=== PATIENT | female | born 1995 | race African-American/Black ===

== ENCOUNTER 2020-06-04 19:21 | Emergency (ER) | payer MEDICAID ==
[~2020-06-04] VITALS: Ht 162.6 cm; Wt 73.0 kg
[2020-06-04] MEDS ORDERED: ACETAMINOPHEN 325MG TABLET PO ONE (20:00)
[2020-06-04] MEDS ORDERED: ONDANSETRON HCL 4MG/2ML INJ IV STA (20:20)
[2020-06-04] MEDS ORDERED: SODIUM CHLORIDE 0.9% 1,000 ML IV ONE (20:20)
[2020-06-04 20:56] LABS: CLARITY URINE CLEAR (CLEAR); COLOR URINE YELLOW (YELLOW); KETONES URINE TRACE (NEGATIVE); LEUKOCYTE ESTERASE URINE NEGATIVE (NEGATIVE); NITRITE URINE NEGATIVE (NEGATIVE); OCCULT BLOOD URINE TRACE (NEGATIVE); PROTEIN URINE TRACE (NEGATIVE); SPECIFIC GRAVITY URINE 1.027 (1.005-1.030)
[2020-06-04 20:58] LABS: BASOPHILS % 0.4 % (0.0-2.0); EOSINOPHILS % 0.2 % (0.0-5.0); HEMATOCRIT. 40.4 % (36.0-48.0); HEMOGLOBIN. 13.5 g/dL (12.0-16.0); LYMPHOCYTES % 22.6 % (20.0-50.0); MEAN CORPUSCULAR HEMOGLOBIN 28.1 pg (28.0-32.0); MEAN PLATELET VOLUME 8.9 fl (7.4-10.4); MONOCYTES % 9.3 % (2.0-8.0); NEUTROPHILS % 67.5 % (40.0-76.0); PLATELET 199 x1000/uL (130-400); RED BLOOD CELL COUNT 4.81 mill/uL (4.2-5.4); RED CELL DISTRIBUTION WIDTH 13.8 % (11.6-14.6)
[2020-06-04 21:07] LABS: CHLORIDE 102 mEq/L (98-107)
[2020-06-04 22:06] VITALS: BP 131/74
== END 2020-06-04 22:10 | disposition home or self-care (01) ==
LOC: ER 19:21
DX: U07.1 COVID-19 (principal); B34.9 Viral infection, unspecified; E86.0 Dehydration
CPT/HCPCS: 36415; 80053; 81003; 81025; 85025; 96361; 96374; 99283; C9803; J2405; J7030; U0003

== ENCOUNTER 2020-08-28 18:47 | Emergency (ER) | payer MEDICAID ==
[~2020-08-28] VITALS: Ht 162.6 cm; Wt 90.7 kg
[2020-08-28 21:15] VITALS: BP 119/84
== END 2020-08-28 21:51 | disposition home or self-care (01) ==
LOC: ER 18:47
DX: B34.9 Viral infection, unspecified (principal); R05 Cough; Z20.828 Contact with and (suspected) exposure to other viral communicable diseases
CPT/HCPCS: 71045; 87635; 99284; C9803

== ENCOUNTER 2020-10-23 12:09 | Emergency (ER) | payer MEDICAID ==
[~2020-10-23] VITALS: Ht 162.6 cm; Wt 90.0 kg
[2020-10-23 12:12] VITALS: BP 129/80
[2020-10-23] MEDS ORDERED: ACETAMINOPHEN 325MG TABLET PO ONE (12:45)
== END 2020-10-23 13:25 | disposition home or self-care (01) ==
LOC: ER 12:09
DX: S90.122A Contusion of left lesser toe(s) without damage to nail, initial encounter (principal); W22.8XXA Striking against or struck by other objects, initial encounter; Y93.89 Activity, other specified; Y92.59 Other trade areas as the place of occurrence of the external cause
CPT/HCPCS: 73630; 99283

== ENCOUNTER 2021-12-17 18:10 | Emergency (ER) | payer MEDICAID ==
[~2021-12-17] VITALS: Ht 162.6 cm; Wt 103.0 kg
[2021-12-17 21:00] VITALS: BP 120/81
== END 2021-12-17 21:43 | disposition home or self-care (01) ==
LOC: ER 18:10
DX: U07.1 COVID-19 (principal)
CPT/HCPCS: 87426; 99283

== ENCOUNTER 2022-01-05 11:17 | Emergency (ER) | payer MEDICAID ==
[~2022-01-05] VITALS: Ht 162.6 cm; Wt 101.0 kg
[2022-01-05] MEDS ORDERED: ONDANSETRON HCL 4MG/2ML INJ IV STA (11:29)
[2022-01-05] MEDS ORDERED: SODIUM CHLORIDE 0.9% 1,000 ML IV ONE (11:30)
[2022-01-05 12:10] LABS: BASOPHILS % 0.5 % (0.0-2.0); EOSINOPHILS % 1.8 % (0.0-5.0); HEMATOCRIT. 39.1 % (36.0-48.0); HEMOGLOBIN. 12.9 g/dL (12.0-16.0); LYMPHOCYTES % 22.4 % (20.0-50.0); MEAN CORPUSCULAR HEMOGLOBIN 27.2 pg (28.0-32.0); MEAN CORPUSCULAR VOLUME 82.4 fL (81.0-99.0); MEAN PLATELET VOLUME 9.9 fl (7.4-10.4); MONOCYTES % 5.7 % (2.0-8.0); NEUTROPHILS % 69.6 % (40.0-76.0); PLATELET 275 x1000/uL (130-400); RED BLOOD CELL COUNT 4.75 mill/uL (4.2-5.4); RED CELL DISTRIBUTION WIDTH 14.4 % (11.6-14.6)
[2022-01-05 12:11] LABS: CLARITY URINE TURBID (CLEAR); COLOR URINE YELLOW (YELLOW); KETONES URINE TRACE (NEGATIVE); LEUKOCYTE ESTERASE URINE 3+ (NEGATIVE); NITRITE URINE NEGATIVE (NEGATIVE); OCCULT BLOOD URINE NEGATIVE (NEGATIVE); PROTEIN URINE TRACE (NEGATIVE); SPECIFIC GRAVITY URINE 1.022 (1.005-1.030)
[2022-01-05 12:16] LABS: CHLORIDE 105 mEq/L (98-107)
[2022-01-05 12:52] LABS: B-HCG QUANTITATIVE 85185 mIU/mL (<3)
[2022-01-05] MEDS ORDERED: CEFAZOLIN 1000MG PREMIX 50 ML IV ONE (13:00)
[2022-01-05] MEDS ORDERED: FAMO-135 MT (15:34)
[2022-01-05] MEDS ORDERED: NITR-87 MT (15:34)
[2022-01-05] MEDS ORDERED: ONDA4TAB11 PO (15:34)
[2022-01-05] MEDS ORDERED: FAMOTIDINE 20MG/2ML VIAL IV ONE (16:45)
[2022-01-05 17:01] VITALS: BP 117/66
== END 2022-01-05 17:11 | disposition home or self-care (01) ==
LOC: ER 12:00
DX: O23.41 Unspecified infection of urinary tract in pregnancy, first trimester (principal); N39.0 Urinary tract infection, site not specified; Z3A.10 10 weeks gestation of pregnancy; O26.891 Other specified pregnancy related conditions, first trimester; K80.50 Calculus of bile duct without cholangitis or cholecystitis without obstruction
CPT/HCPCS: 36415; 76705; 76801; 76817; 80053; 81003; 81025; 83690; 84702; 85025; 86850; 86900; 86901; 87086; 96365; 96375; 99284; J0690; J2405; J3490; J7030; Z7610

== ENCOUNTER 2024-01-06 13:09 | Emergency (ER) | payer MEDICAID ==
[~2024-01-06] VITALS: Ht 165.1 cm; Wt 113.0 kg
[~2024-01-06 13:09] MED LIST: FAMO-135 MT; NITR-87 MT; ONDA4TAB11 PO
[2024-01-06 13:15] VITALS: BP 136/88; PULSE 98; RESP 20; TEMP 98.5; O2SAT 98
[2024-01-06] MEDS ORDERED: AMOX500T2 MT (16:07)
[2024-01-06] MEDS ORDERED: OCUFLX RIGHTEYE (16:07)
== END 2024-01-06 16:20 | disposition home or self-care (01) ==
LOC: ER 13:09
DX: H66.91 Otitis media, unspecified, right ear (principal)
CPT/HCPCS: 99283

== ENCOUNTER 2024-07-11 14:09 | Emergency (ER) | payer MEDICAID ==
[~2024-07-11] VITALS: Ht 162.6 cm; Wt 109.0 kg
[~2024-07-11 14:09] MED LIST changes: +AMOX500T2 MT; +OCUFLX RIGHTEYE; +ONDA-239 PO; -ONDA4TAB11 PO
[2024-07-11 14:46] VITALS: BP 141/87; PULSE 92; RESP 16; TEMP 98.4; O2SAT 99
== END 2024-07-11 16:21 | disposition left against medical advice (07) ==
LOC: ER 14:09
DX: L50.9 Urticaria, unspecified (principal); Z53.21 Procedure and treatment not carried out due to patient leaving prior to being seen by health care provider